=== PATIENT | female | born 1985 | race Caucasian/White ===

== ENCOUNTER 2024-02-06 11:28 | Emergency (ER) | payer MEDICAID ==
[~2024-02-06] VITALS: Ht 165.1 cm; Wt 59.2 kg
[2024-02-06] MEDS ORDERED: TRAM50TA2 PO (12:28)
[2024-02-06] MEDS ORDERED: NAPR-56 PO (12:28)
[2024-02-06] MEDS: naproxen 500mg tablet PO ONE (12:32)
[2024-02-06] MEDS: HYDROcodone/acetaminophen 5mg/325mg tablet PO ONE (12:32)
[2024-02-06 12:40] VITALS: BP 136/88; PULSE 80; RESP 18; TEMP 97.7; O2SAT 97
== END 2024-02-06 12:46 | disposition home or self-care (01) ==
LOC: ER 11:28
DX: M25.512 Pain in left shoulder (principal); F12.90 Cannabis use, unspecified, uncomplicated; Z88.1 Allergy status to other antibiotic agents
CPT/HCPCS: 99283